=== PATIENT | female | born 1995 | race Caucasian/White ===

== ENCOUNTER 2017-05-07 08:13 | Emergency (ER) | payer OTHER ==
--- NOTE | 2017-05-07 09:37 | ED ---
Laceration/Wound HPI - HPI Summary HPI Summary: 21 female presents with complaints of left thumb laceration that she sustained around 7:55am today while cutting onions. States she cut it using a knife. She denies any current bleeding. No other injuries, able to move entire thumb. Tetanus is UTD. No PMHx. Denies numbness/tingling. Has been applying compression and icing. - History of Current Complaint Stated Complaint: LT HAND/THUMB LAC Time Seen by Provider: 05/07/17 08:48 Hx Obtained From: Patient Mechanism of Injury: Sharp/Blunt Trauma - knife to finger Onset/Duration: Sudden Onset Aggravating: Movement Alleviating: Compression Timing: Constant Onset Severity: Mild Current Severity: None Pain Intensity: 0 Pain Scale Used: 0-10 Numeric Associated Signs & Symptoms: Pain - some tenderness at area of laceration Related Hx: Dominant Hand (Right) - Allergy/Home Medications Allergies/Adverse Reactions: Allergies Allergy/AdvReac Type Severity Reaction Status Date / Time Amoxicillin [From Augmentin] Allergy Swelling Verified 05/07/17 08:16 Cefprozil [From Cefzil] Allergy Unknown Verified 05/07/17 08:16 Reaction Details Clavulanic Acid Allergy Swelling Verified 05/07/17 08:16 [From Augmentin] Raymond Oil [From Raymond] Allergy Unknown Verified 05/07/17 08:16 Reaction Details Rice Allergy Unknown Verified 05/07/17 08:16 Reaction Details PMH/Surg Hx/FS Hx/Imm Hx Endocrine/Hematology History: Denies: Hx Diabetes Cardiovascular History: Denies: Hx Hypertension Respiratory History: Denies: Hx Asthma - Immunization History Date of Tetanus Vaccine: UTD within last 5 years per patient Date of Influenza Vaccine: None Immunizations Up to Date: Yes Infectious Disease History: No Infectious Disease History: Denies: Traveled Outside the [place] in Last 30 Days - Family History Known Family History: Positive: None - Social History Alcohol Use: None Substance Use Type: Reports: None Smoking Status (MU): Never Smoked Tobacco Review of Systems Constitutional: Negative Cardiovascular: Negative Respiratory: Negative Positive: Other - laceration to left thumb Neurological: Negative All Other Systems Reviewed And Are Negative: Yes Physical Exam Triage Information Reviewed: Yes Vital Signs On Initial Exam: Initial Vitals Temp Pulse Resp BP Pulse Ox 98.1 F 80 16 113/73 99 05/07/17 08:16 05/07/17 08:16 05/07/17 08:16 05/07/17 08:16 05/07/17 08:16 Vital Signs Reviewed: Yes Appearance: Positive: Well-Appearing, No Pain Distress, Well-Nourished Skin: Positive: Warm, Skin Color Reflects Adequate Perfusion, Dry, Erythema @ - at area of top anterior left thumb where nail meets skin. skin avulsion that is already well approximated and still attached, unable to lift. almost difficult to visualize. nail not included, intact and without injury. no active bleeding or FB.. Negative: Cold, Numb, Tender, Cyanosis @, Pale Head/Face: Positive: Normal Head/Face Inspection Eyes: Positive: Conjunctiva Clear ENT: Positive: Hearing grossly normal Neck: Positive: Supple, Nontender Respiratory/Lung Sounds: Positive: Clear to Auscultation, Breath Sounds Present. Negative: Rales, Rhonchi, Wheezes Cardiovascular: Positive: Normal, RRR, Pulses are Symmetrical in both Upper and Lower Extremities - 2+ radial b/l. Negative: Murmur, Rub Musculoskeletal: Positive: Normal, Strength/ROM Intact, Pain @ - some tenderness on palpation of area of skin avulsion/laceration. Negative: Edema Left, Edema Right Neurological: Positive: Normal, Sensory/Motor Intact - sensation intact, Alert, Oriented to Person Place, Time, CN Intact II-III, Reflexes Intact, NV Bundle Intact Distally Psychiatric: Positive: Affect/Mood Appropriate Procedures - Laceration/Wound Repair 1 Location: Other - left anterior top of thumb Description: Linear Length, Depth and Shape: .5cm skin avulsion/cut Irrigated w/ Saline (ccs): 200 Laceration/Wound Explored: clean, no foreign body removed Sterile Dressing Applied?: Yes - xeroform, telfa, coband Diagnostics - Vital Signs Vital Signs Temp Pulse Resp BP Pulse Ox 05/07/17 08:30 98.1 F 80 16 115/71 100 05/07/17 08:16 98.1 F 80 16 113/73 99 - Laboratory Lab Statement: Any lab studies that have been ordered have been reviewed, and results considered in the medical decision making process. Laceration Repair Course/Dx - Course Course Of Treatment: no need for x-ray due to KEVYN. skin avulsion was irrigated and then covered with xeroform and dressed. no laceration to suture or glue, skin was all well approximated, almost hard to visualize cut. tetanus UTD per patient. no pain management. keep clean and dry. no antibiotics necessary. - Differential Dx Differental Diagnoses: Abrasion, Avulsion, Laceration - Clinical Impression Provider Diagnoses: Avulsion of skin of left thumb without complication Discharge - Discharge Plan Condition: Stable Disposition: HOME Patient Education Materials: Laceration (ED) [facility] - Additional Instructions: Keep clean and dry. Do not get dressing wet for 24-48 hours. You may then remove dressing. You can recover if desired. Apply triple antibiotic ointment. Follow up with PCP.
[2017-05-07 09:43] VITALS: BP 118/73
== END 2017-05-07 09:25 | disposition home or self-care (01) ==
LOC: ED 08:13
DX: S61.012A Laceration without foreign body of left thumb without damage to nail, initial encounter (principal); W26.0XXA Contact with knife, initial encounter; Y93.89 Activity, other specified; Y92.9 Unspecified place or not applicable
CPT/HCPCS: 99282